=== PATIENT | female | born 1985 | race Two or more races ===

== ENCOUNTER 2018-02-17 15:20 | Emergency (ER) | payer OTHER ==
[~2018-02-17] VITALS: Ht 149.9 cm; Wt 43.5 kg
[~2018-02-17 15:20] MED LIST: LEVSIN/SL0.125 MG SL; ORTHO TRI-7 DAYSX1 PO; PEPCID40 MG PO; ZOFRAN4 MG PO
== END 2018-02-17 18:01 | disposition home or self-care (01) ==
LOC: ER 15:20
DX: B34.9 Viral infection, unspecified (principal)

== ENCOUNTER 2018-05-28 21:46 | Emergency (ER) | payer OTHER ==
[~2018-05-28] VITALS: Ht 147.3 cm; Wt 42.6 kg
== END 2018-05-28 23:03 | disposition home or self-care (01) ==
LOC: ER 21:46
DX: R13.19 Other dysphagia (principal)

== ENCOUNTER 2018-12-09 11:04 | Emergency (ER) | payer OTHER ==
[~2018-12-09] VITALS: Ht 152.4 cm; Wt 49.9 kg
== END 2018-12-09 13:52 | disposition home or self-care (01) ==
LOC: ER 11:04
DX: J11.1 Influenza due to unidentified influenza virus with other respiratory manifestations (principal); R51 Headache

== ENCOUNTER 2019-04-12 06:22 | Emergency (ER) | payer OTHER ==
[~2019-04-12] VITALS: Ht 149.9 cm; Wt 39.9 kg
[2019-04-12] MEDS ORDERED: OMEPRAZOLE20 MG (06:29)
[2019-04-12] MEDS ORDERED: CARAFATE1 GM (06:29)
== END 2019-04-12 09:09 | disposition home or self-care (01) ==
LOC: ER 06:22
DX: G43.909 Migraine, unspecified, not intractable, without status migrainosus (principal); B34.9 Viral infection, unspecified

== ENCOUNTER 2019-06-19 16:26 | Emergency (ER) | payer OTHER ==
[~2019-06-19] VITALS: Ht 149.9 cm; Wt 41.7 kg
[~2019-06-19 16:26] MED LIST changes: +CARAFATE1 GM; +OMEPRAZOLE20 MG
[2019-06-19] MEDS ORDERED: OMEPRAZOLE20 MG (17:11)
== END 2019-06-19 18:01 | disposition home or self-care (01) ==
LOC: ER 16:26
DX: R06.02 Shortness of breath (principal); R07.89 Other chest pain

== ENCOUNTER 2020-01-08 16:59 | Emergency (ER) | payer OTHER ==
[~2020-01-08] VITALS: Ht 149.9 cm; Wt 40.4 kg
[2020-01-08] MEDS ORDERED: ACID REDUCER20 M1 PO (17:11)
== END 2020-01-08 21:05 | disposition home or self-care (01) ==
LOC: ER 16:59
DX: G43.909 Migraine, unspecified, not intractable, without status migrainosus (principal)

== ENCOUNTER 2021-06-29 17:14 | Emergency (ER) | payer OTHER ==
[~2021-06-29] VITALS: Ht 149.9 cm; Wt 43.1 kg
[~2021-06-29 17:14] MED LIST changes: +ACID REDUCER20 M1 PO
[2021-06-29] MEDS ORDERED: ZYRTEC10 M3 (17:25)
[2021-06-29] MEDS ORDERED: SINGULAIR10 MG (17:25)
== END 2021-06-29 22:57 | disposition home or self-care (01) ==
LOC: ER 17:14
DX: O02.1 Missed abortion (principal)

== ENCOUNTER 2021-09-15 13:57 | Emergency (ER) | payer OTHER ==
[~2021-09-15] VITALS: Ht 149.9 cm; Wt 43.5 kg
[~2021-09-15 13:57] MED LIST changes: +SINGULAIR10 MG; +ZYRTEC10 M3
[2021-09-15] MEDS ORDERED: MULTI VITAMIN1 EACH PO (14:27)
[2021-09-15] MEDS ORDERED: FOLIC ACID20 MG (14:27)
== END 2021-09-15 21:01 | disposition home or self-care (01) ==
LOC: ER 13:57
DX: N39.0 Urinary tract infection, site not specified (principal)

== ENCOUNTER 2022-02-14 17:53 | Emergency (ER) | payer OTHER ==
[~2022-02-14] VITALS: Ht 157.5 cm; Wt 52.2 kg
[~2022-02-14 17:53] MED LIST changes: +FOLIC ACID20 MG; +MULTI VITAMIN1 EACH PO
[2022-02-14] MEDS ORDERED: SINGULAIR10 MG PO (18:16)
== END 2022-02-14 22:32 | disposition home or self-care (01) ==
LOC: ER 17:53
DX: R51.9 Headache, unspecified (principal)

== ENCOUNTER 2023-05-27 13:29 | Emergency (ER) | payer OTHER ==
[~2023-05-27] VITALS: Ht 149.9 cm; Wt 40.4 kg
[~2023-05-27 13:29] MED LIST changes: +SINGULAIR10 MG PO
== END 2023-05-27 17:32 | disposition home or self-care (01) ==
LOC: ER 13:29
DX: S80.01XA Contusion of right knee, initial encounter (principal); W01.0XXA Fall on same level from slipping, tripping and stumbling without subsequent striking against object, initial encounter; Y93.79 Activity, other specified sports and athletics; Y92.009 Unspecified place in unspecified non-institutional (private) residence as the place of occurrence of the external cause; M25.561 Pain in right knee

== ENCOUNTER 2023-06-17 23:12 | Emergency (ER) | payer OTHER ==
[~2023-06-17] VITALS: Ht 149.9 cm; Wt 41.3 kg
== END 2023-06-18 06:29 | disposition home or self-care (01) ==
LOC: ER 23:12
DX: M54.59 Other low back pain (principal)

== ENCOUNTER 2023-10-04 18:04 | Emergency (ER) | payer OTHER ==
[~2023-10-04] VITALS: Ht 149.9 cm; Wt 41.7 kg
[2023-10-04] MEDS ORDERED: DICLOFENAC SODI75 MG PO (20:00)
[2023-10-04] MEDS ORDERED: BACTRIM DS TAB1 EACH PO (20:00)
== END 2023-10-04 20:03 | disposition home or self-care (01) ==
LOC: ER 18:04
DX: J34.0 Abscess, furuncle and carbuncle of nose (principal); Z88.0 Allergy status to penicillin
CPT/HCPCS: 96365 ×2; 99284; J0696; J1885

== ENCOUNTER 2024-05-16 04:00 | Emergency (ER) | payer OTHER ==
[~2024-05-16] VITALS: Ht 149.9 cm; Wt 44.5 kg
[~2024-05-16 04:00] MED LIST changes: +BACTRIM DS TAB1 EACH PO; +DICLOFENAC SODI75 MG PO
[2024-05-16] MEDS ORDERED: KETOROLAC TROMETHAMINE 30 MG VIAL IM STA (08:23)
[2024-05-16] MEDS ORDERED: ORPHENADRINE CITRATE 100 MG TABLET PO STA (08:24)
[2024-05-16] MEDS ORDERED: DEXAMETHASONE SODIUM PHOSPHATE 4 MG/ML VIAL IM STA (08:24)
[2024-05-16] MEDS ORDERED: FAMOTIDINE/PF 20 MG/2 ML VIAL IV STA (08:30)
[2024-05-16] MEDS ORDERED: KETOROLAC TROMETHAMINE 30 MG VIAL ONE (08:32)
[2024-05-16] MEDS ORDERED: DEXAMETHASONE SODIUM PHOSPHATE 4 MG/ML VIAL ONE (08:32)
[2024-05-16] MEDS ORDERED: KETO10TA2 PO (08:34)
[2024-05-16] MEDS ORDERED: ZANAFLEX4 MG PO (08:34)
[2024-05-16] MEDS ORDERED: FAMOTIDINE/PF 20 MG/2 ML VIAL ONE (08:39)
== END 2024-05-16 08:50 | disposition home or self-care (01) ==
LOC: ER 04:00
DX: G44.209 Tension-type headache, unspecified, not intractable (principal); Z88.0 Allergy status to penicillin

== ENCOUNTER 2024-08-20 13:45 | Emergency (ER) | payer OTHER ==
[~2024-08-20] VITALS: Ht 149.9 cm; Wt 43.5 kg
[~2024-08-20 13:45] MED LIST changes: +KETO10TA2 PO; +ZANAFLEX4 MG PO
[2024-08-20] MEDS ORDERED: KETOROLAC TROMETHAMINE 60 MG VIAL IM ONE (14:30)
[2024-08-20] MEDS ORDERED: BUTALB/ACETAMINOPHEN/CAFFEINE 1 TAB TABLET PO ONE (14:30)
[2024-08-20] MEDS ORDERED: DEXAMETHASONE SODIUM PHOSPHATE 4 MG/ML VIAL IM ONE (14:30)
[2024-08-20 15:03] LABS: HEMATOCRIT 36.4 % (36.0-45.00); HEMOGLOBIN 12.2 g/dL (12.0-15.00); MEAN CELL VOLUME 88.9 fL (80.00-100.00); MEAN CORPUSCULAR HEMOGLOBIN 29.9 pg (27.00-32.0); MEAN CORPUSCULAR HGB CONC 33.6 g/dl (32.0-36.0); PLATELET COUNT 233 K/uL (150-450); RED BLOOD COUNT 4.09 M/uL (4.00-6.00); RED CELL DISTRIBUTION WIDTH 12.9 % (11.5-14.5)
[2024-08-20 15:17] LABS: ALBUMIN 3.9 gm/dL (3.4-5.0); BILIRUBIN TOTAL 0.39 mg/dL (0.3-1.2); CALCIUM 9.4 mg/dL (8.5-10.1); CREATININE SERUM 0.8 mg/dL (0.55-1.02); GFR 79.44; GLOBULINA 4.1 G/DL (2.4-3.5); POTASSIUM 3.9 mEq/L (3.5-5.1)
[2024-08-20] MEDS ORDERED: NORFLEX100MG PO (15:28)
== END 2024-08-20 15:55 | disposition home or self-care (01) ==
LOC: ER 13:46
PROVIDERS: General Practice
DX: G44.209 Tension-type headache, unspecified, not intractable (principal); Z88.0 Allergy status to penicillin

== ENCOUNTER 2024-09-26 04:57 | Emergency (ER) | payer OTHER ==
[~2024-09-26] VITALS: Ht 149.9 cm; Wt 43.1 kg
[~2024-09-26 04:57] MED LIST changes: +NORFLEX100MG PO
[2024-09-26 09:06] LABS: HEMOGLOBIN 12.4 g/dL (12.0-15.00); MEAN CELL VOLUME 87.6 fL (80.00-100.00); MEAN CORPUSCULAR HEMOGLOBIN 30.3 pg (27.00-32.0); MEAN CORPUSCULAR HGB CONC 34.6 g/dl (32.0-36.0); PLATELET COUNT 229 K/uL (150-450); RED BLOOD COUNT 4.11 M/uL (4.00-6.00); RED CELL DISTRIBUTION WIDTH 13.3 % (11.5-14.5)
[2024-09-26] MEDS ORDERED: KETOROLAC TROMETHAMINE 30 MG VIAL IM ONE (11:00)
== END 2024-09-26 11:11 ==
LOC: ER 04:59
PROVIDERS: General Practice
DX: B34.9 Viral infection, unspecified (principal); Z88.0 Allergy status to penicillin; J45.909 Unspecified asthma, uncomplicated; J32.9 Chronic sinusitis, unspecified; Z20.822 Contact with and (suspected) exposure to COVID-19
CPT/HCPCS: 36415; 96372; 99282; J1885

== ENCOUNTER 2025-01-18 18:32 | Emergency (ER) | payer OTHER ==
[~2025-01-18] VITALS: Ht 149.9 cm; Wt 42.6 kg
[2025-01-18] MEDS ORDERED: KETOROLAC TROMETHAMINE 30 MG VIAL IM STA (19:41)
[2025-01-18 21:05] LABS: HEMOGLOBIN 12.2 g/dL (12.0-15.00); MEAN CELL VOLUME 89.8 fL (80.00-100.00); MEAN CORPUSCULAR HEMOGLOBIN 29.6 pg (27.00-32.0); PLATELET COUNT 234 K/uL (150-450); RED BLOOD COUNT 4.12 M/uL (4.00-6.00); RED CELL DISTRIBUTION WIDTH 13.2 % (11.5-14.5)
[2025-01-18 21:17] LABS: ALBUMIN 3.9 gm/dL (3.4-5.0); BILIRUBIN TOTAL 0.42 mg/dL (0.3-1.2); CALCIUM 9.3 mg/dL (8.5-10.1); CREATININE SERUM 0.69 mg/dL (0.55-1.02); GFR 93.76; POTASSIUM 3.54 mEq/L (3.5-5.1); TOTAL PROTEIN 7.9 gm/dL (6.4-8.2)
== END 2025-01-18 22:39 | disposition home or self-care (01) ==
LOC: ER 18:35
DX: R51.9 Headache, unspecified (principal); Z88.0 Allergy status to penicillin; Z20.822 Contact with and (suspected) exposure to COVID-19
CPT/HCPCS: 36415; 96372; 99282; J1885

== ENCOUNTER 2025-05-10 01:04 | Emergency (ER) | payer OTHER ==
[~2025-05-10] VITALS: Ht 149.9 cm; Wt 42.6 kg
[2025-05-10] MEDS ORDERED: KETOROLAC TROMETHAMINE 30 MG VIAL IV STA (03:00)
[2025-05-10] MEDS ORDERED: ORPHENADRINE CITRATE 30 MG/ML AMPUL IV STA (03:00)
[2025-05-10] MEDS ORDERED: ONDANSETRON HCL 2 MG/ML VIAL IV STA (03:00)
[2025-05-10] MEDS ORDERED: ORPHENADRINE CITRATE 30 MG/ML AMPUL ONE (03:15)
[2025-05-10] MEDS ORDERED: KETOROLAC TROMETHAMINE 30 MG VIAL ONE (03:15)
[2025-05-10] MEDS ORDERED: ONDANSETRON HCL 2 MG/ML VIAL ONE (03:16)
[2025-05-10] MEDS ORDERED: DOLOGESIC-DF 51 EACH PO (04:59)
== END 2025-05-10 05:05 ==
LOC: ER 01:22
DX: G44.209 Tension-type headache, unspecified, not intractable (principal); Z88.0 Allergy status to penicillin